=== PATIENT | male | born 1935 | race Caucasian/White ===

== ENCOUNTER 2019-03-09 16:38 | Emergency (ER) | payer BC, MEDICARE ==
[~2019-03-09 16:38] MED LIST: ISOVUE-370 76%-LOCM 1 ML ONE
[2019-03-09 17:22] LABS: Hemoglobin 15.7 g/dL (14.0-18.0); Mean Corpuscular HGB CONC 34.3 g/dL (32.0-36.0); Mean Corpuscular Hemoglobin 32.4 pg (27.0-31.0); Mean Corpuscular Volume 94.6 fL (78.0-98.0); Mean Platelet Volume 8.3 fL (7.4-10.4); Platelet Count 146 thou/uL (130-400); RBC Distribution Width 11.4 % (11.5-14.5); Red Blood Cell (RBC) Count 4.83 mill/uL (4.70-6.10); White Blood Cell (WBC) Count 10.5 thou/uL (4.8-10.8)
--- NOTE | 2019-03-09 17:29 | RAD ---
RADIOGRAPH CHEST 1 VIEW: DATE: 03/09/2019 TIME: 5:06 PM HISTORY: 83-year-old male with cough, fever, and chest pain COMPARISON: 08/17/2015 FINDINGS: There is a new dual-lead left subclavian transvenous permanent pacemaker. Another subtle new finding of minimal streaky densities at left base, either scar or subsegmental atelectasis. No consolidation. No cardiomegaly or pulmonary edema. No pneumothorax. IMPRESSION: 1. Pacemaker. 2. No convincing evidence of pneumonia
[2019-03-09 17:38] LABS: ALT (SGPT) 24 U/L (8-55); AST (SGOT) 20 U/L (5-34); Albumin 4.2 g/dL (3.4-4.8); Alkaline Phosphatase 69 U/L (40-150); Anion Gap 10 mmol/L (10-20); BUN (Urea Nitrogen) 19 mg/dL (8.4-25.7); Bilirubin, Total 0.6 mg/dL (0.2-1.2); Calc. Creatinine Clearance 0 mL/min (70-130); Calcium 9.7 mg/dL (7.8-10.44); Carbon Dioxide 26 mmol/L (23-31); Chloride 106 mmol/L (98-107); Estimated GFR-MDRD 61; Globulin 2.9 g/dL (2.4-3.5); Glucose 105 mg/dL (83-110); Potassium 3.8 mmol/L (3.5-5.1); Protein, Total 7.1 g/dL (5.8-8.1); Sodium 138 mmol/L (136-145)
[2019-03-09 17:48] LABS: Band 4 % (5-11); Eosinophils 2 % (0-10); Lymphocytes 9 % (21-51); MDiff Complete? YES; Monocytes 13 % (0-10); Neutrophil 67 % (42-75); Platelet Morphology Comment Appears Adequate; RBC Morphology Normal; Reactive Lymphocytes 5 % (0-10)
--- NOTE | 2019-03-09 18:26 | CT ---
CT ANGIOGRAM THORAX WITH CONTRAST: (CTA pulmonary angiogram) DATE: 03/09/2019 HISTORY: 83-year-old male with chest pain, cough, and fever. TECHNIQUE: IV injection of iodinated contrast. Scan acquisition timing attempted to coincide with iodinated contrast bolus reaching maximal density in pulmonary arteries. 3-D MIP reconstructions. FINDINGS: No evidence of pulmonary thromboembolism. No thoracic aortic dissection or aneurysm. 1 x 0.8 cm focal moderately hypodense lesion in hepatic segment 7 posterior subcapsular location near dome of liver, unchanged since abdominal CT of 12/12/2013, and therefore benign. Nonspecific haziness and mild groundglass densities at the posterior, dependent portions of the bilateral lower lower lobes. These probably represent dependent changes. No consolidation or pulmonary edema visualized in the upp er lobes or right middle lobe. No pneumothorax. No consolidation. Left subclavian pacemaker. Atherosclerotic calcification of LAD. No pericardial effusion. No mediastinal or hilar lymphadenopath y. IMPRESSION: 1. No pulmonary thromboembolism. 2. No evidence for pneumonia. 3. Pacemaker. 4. ICD-10: I 25.84 coronary atherosclerosis due to calcified coronary lesion
[2019-03-09] MEDS ORDERED: Ketorolac Tromethamine 30 MG/ML VIAL ONE (18:55)
[2019-03-09] MEDS ORDERED: Acetaminophen/Codeine 30-300mg Tablet ONE (18:55)
[2019-03-09 20:53] LABS: Troponin I Less than 0.010 ng/mL (< 0.028)
== END 2019-03-09 21:10 | disposition home or self-care (01) ==
LOC: ERS 16:38
DX: M94.0 Chondrocostal junction syndrome [Tietze] (principal); I48.91 Unspecified atrial fibrillation; I49.9 Cardiac arrhythmia, unspecified
CPT/HCPCS: 36415; 71045; 71275; 80053; 84484; 85025; 85379; 93005; 96374; J1885; Q9966

== ENCOUNTER 2021-09-26 17:02 | Outpatient (CLI) | payer MEDICARE, BC ==
[2021-09-26 17:40] LABS: Mean Corpuscular Hemoglobin 31.8 pg (27.0-33.0); Mean Corpuscular Volume 93.6 fl (81.2-95.1); Mean Platelet Volume 9.8 fl (7.4-10.4); Platelet Count 184 10x3/uL (150-450); RBC Distribution Width 12.8 % (11.5-14.5); Red Blood Cell (RBC) Count 5.34 10x6/uL (4.32-5.72)
[2021-09-26 17:48] LABS: Prothrombin Time 10.7 sec (9.5-12.1)
[2021-09-26 17:52] LABS: Anion Gap 16 mmol/L (10-20); BUN (Urea Nitrogen) 19 mg/dL (8.4-25.7); Calc. Creatinine Clearance 0 mL/min (70-130); Calcium 10.2 mg/dL (7.8-10.44); Carbon Dioxide 23 mmol/L (23-31); Chloride 104 mmol/L (98-107); Glucose 86 mg/dL (83-110); Potassium 4.4 mmol/L (3.5-5.1); Sodium 139 mmol/L (136-145)
[2021-09-27 22:35] LABS: SARS-CoV-2 PCR by NAA Not Detected (NotDetected)
== END 2021-09-26 17:03 | disposition home or self-care (01) ==
LOC: LABBT 17:02
PROVIDERS: ATTEND Internal Medicine Cardiovascular Disease
DX: Z01.812 Encounter for preprocedural laboratory examination (principal); Z20.822 Contact with and (suspected) exposure to COVID-19
CPT/HCPCS: 80048; 85027; 85610; U0003; U0005